=== PATIENT | female | born 1955 | race Caucasian/White ===

== ENCOUNTER 2017-08-13 01:56 | Inpatient (IN) | payer MEDICARE, MEDICAID ==
[~2017-08-13] VITALS: Ht 172.7 cm; Wt 150.5 kg
[2017-08-13] VITALS (24 sets, daily range): BP systolic 85–157; BP diastolic 46–82; Ht 172.7 cm; Wt 150.5 kg
--- NOTE | ~2017-08-13 | OP ---
PATIENT NAME: DHRUV MERCADO MEDICAL RECORD: [id number] :55 LOCATION:D[facility] D.2311 ADMISSION DATE:08/13/17 SURGEON: LAKHWINDER SEVILLA MD DATE OF OPERATION: 08/17/2017 DATE OF OPERATION: 08/17/2017 PREOPERATIVE DIAGNOSES: 1. Hypertension. 2. Vurph-lj-qeufjoj hypoxic and hypercapnic respiratory failure. 3. Community-acquired pneumonia. 4. Eebrr-ez-adnpusq systolic congestive heart failure. 5. Coronary artery disease. 6. Chronic lower extremity lymphedema POSTOPERATIVE DIAGNOSES: 1. Hypertension. 2. Zchuj-oh-lrqcosv hypoxic and hypercapnic respiratory failure. 3. Community-acquired pneumonia. 4. Xstbl-sk-xgziyzv systolic congestive heart failure. 5. Coronary artery disease. 6. Chronic lower extremity lymphedema. PROCEDURE: Right radial art line placement. SURGEON: Lakhwinder Sevilla MD REPORT OF PROCEDURE: The patient's right wrist was prepped and draped in sterile fashion. Half a cc of 1% lidocaine was infused into the subcutaneous tissues and Angiocath. A 20-Canadian was used to access the patient's right radial artery. We were able to advance this with ease and there was good pulsatile flow. This was sutured down with interrupted 3-0 silks times 2 and had a good reading on the initial arterial readings. This was then dressed with a Tegaderm. COMPLICATIONS: None. CONDITION: Critical. ANESTHESIA: Local. BLOOD LOSS: Minimal. Procedure done in the ICU at the bedside. TRANSINT:[id number] Voice Confirmation ID: [id number] DOCUMENT ID: [id number] OPERATIVE REPORT [id number] ROGELIODHRUVLAKHWINDER JON MD at 1409 CC: [id number] DICTATION DATE: 08/17/172139 METAL MOLDER: 08/18/17 0205 ADM IN [place] [id number] [place] [address]
--- NOTE | ~2017-08-13 | EC ---
PATIENT:DHRUV MERCADO DATE OF SERVICE: 08/13/17 SEX: F MEDICAL RECORD: [id number] DATE OF : 55 LOCATION:[facility] AGE OF PATIENT: 62 ADMISSION DATE: 08/13/17 REFERRING PHYSICIAN: INTERPRETING PHYSICIAN: YUSRA BRANHAM MD ECHOCARDIOGRAM REPORT ECHO CHARGES Date: CLINICAL DIAGNOSIS: ECHOCARDIOGRAPHIC MEASUREMENTS (adult normal given) AC root (d.<3.7cm) cm LV Septum d (<1.2 cm> cm Valve Excursion cm LV Septum (systole) cm Left Atria (s.<4.0cm> cm LVPW d(<1.2cm) cm RV (d.<2.3cm) cm LVPW (sytole) cm LV diastole(<5.6CM) cm MV E-F(>70mm/sec) cm LV systole cm LVOT Diameter cm MV exc.(>10mm) cm Est.ejection fraction (50-75%) % DOPPLER: LVIT cm/sec A cm/sec E cm/sec LA cm/sec RVSP mmHg LVOT cm/sec AOP1/2T m/s Asc. Ao cm/sec RVOT cm/sec RA cm/sec PA cm/sec AV Gradient Peak mmHg AV Mean mmHg AV Area cm MV Gradient Peak mmHg MV Mean mmHg MV Area cm COMMENTS: Emergency Room Physician Assistant: Pacs Administrator: PREMA# Pericardial Effusion DATE OF SERVICE: 08/13/2017 PROCEDURE: Echocardiogram. FINDINGS: 1. Left ventricular chamber size is within normal limits. Left ventricular systolic function is mildly reduced, overall ejection fraction estimated at 40%. There is mild global hypokinesis throughout all segments with no discrete wall motion abnormalities present. 2. Left atrium, right atrium, and right ventricular chamber sizes are within ECHOCARDIOGRAM REPORT [id number] DHRUV MERCADO normal limits. 3. Valvular structures: Aortic valve demonstrates calcific aortic sclerosis, but no significant aortic stenosis is present. The remaining valvular structures have normal structure and motion. 4. Doppler interrogation only reveals mild mitral regurgitation, moderate tricuspid regurgitation, no other valvular insufficiency or stenosis. Pulmonary systolic pressure is estimated at 39 mmHg. 5. No evidence of pericardial effusion or left ventricular thrombus. TRANSINT:[id number] Voice Confirmation ID: [id number] DOCUMENT ID: [id number] YUSRA BRANHAM MD at 1730 CC: [id number] DICTATION DATE: 08/13/17 1321 DIESEL ENGINE FITTER: 08/13/17 1337 ADM IN [facility] [address] [facility], [facility]
--- NOTE | ~2017-08-13 | CN ---
PATIENT NAME:DHRUV MERCADO MEDICAL RECORD: [id number] : 55 LOCATION:[facility].2311 ADMIT DATE: 08/13/17 ACCOUNT: [id number] CONSULTING PHYSICIAN: PAULA BARNES MD REFERRING PHYSICIAN: PRISCILLA MAN MD DATE OF CONSULTATION: 08/13/2017 CONSULT REQUESTING PHYSICIAN: Dr. Man. REASON FOR CONSULTATION: Pulmonary edema, wizss-ni-lsffrrc hypoxic respiratory failure. HISTORY OF PRESENT ILLNESS: Ms. Mercado is a 62-year-old female who is sick for the last few days. She is coughing, wheezing, and shortness of breath. She has orthopnea and PND. The patient was seen in the [facility] and found out pulmonary edema and pneumonia. The patient transferred to [facility]. She is now feeling a little bit better. Denies any chest pain. She has a chronic dependent edema which is oozing fluid. REVIEW OF SYSTEMS: As in history of present illness. PAST MEDICAL HISTORY: 1. Obstructive sleep apnea. 2. Chronic hypoxic respiratory failure. 3. Chronic obstructive pulmonary disease. 4. Congestive heart failure. 5. Coronary artery disease. PAST SURGICAL HISTORY: 1. Cholecystectomy. 2. Excision of melanoma from the left breast. 3. Femur surgery. 4. Left lymphadenectomy. ALLERGIES: SHE IS ALLERGIC TO LEVOFLOXACIN AND CODEINE. PERSONAL AND SOCIAL HISTORY: The patient is an ex-smoker. She is a nondrinker. FAMILY HISTORY: Significant for cardiovascular disease. PHYSICAL EXAMINATION: GENERAL: Now, the patient is lying comfortably. She is not in acute distress. VITAL SIGNS: The blood pressure 157/60, pulse is 21, respiration is 20, temperature is 99.1, SpO2 is 97% on 35% oxygen on BiPAP. HEENT: Conjunctivae are pink. Sclerae not icteric. NECK: Supple, no JVD. CHEST: The chest excursion is minimal on both sides, bilateral crackles, wheeze on forceful expiration. HEART: Rhythm regular, normal sound. Grade II/ systolic murmur. ABDOMEN: Soft, bowel sounds present. No hepatosplenomegaly. RECTAL: Deferred. EXTREMITIES: No cyanosis, no clubbing. There are 2+ pedal edema. SKIN: Warm, normal turgor. There is a stasis ulcer of the lower extremities. CENTRAL NERVOUS SYSTEM: The patient is awake and alert. There are no obvious cranial nerve abnormality. The gait was not tested. CONSULT REPORT [id number] DHRUV MERCADO LABORATORY DATA: CBC: WBC 29,000, hemoglobin 10.9, hematocrit 36.2, the platelet count 317. Chemistry: Sodium 134, potassium 4.2, BUN is 16, creatinine is 0.9, glucose 113. The proBNP is 13,776. IMPRESSION: 1. Zdhoe-sn-bhhwneq hypoxic respiratory failure. 2. Bilateral pneumonia, most likely community-acquired pneumonia. 3. Pulmonary edema. 4. Congestive heart failure with a chronic systolic dysfunction with EF of 40%, there is elevated proBNP. 5. Ex-smoker. 6. Coronary artery disease. 7. Chronic dependent edema. 8. Obstructive sleep apnea. RECOMMENDATIONS: 1. BiPAP and supplemental oxygen as required. 2. Albuterol ipratropium nebulizer. 3. Brovana-budesonide nebulizer. Start methylprednisolone IV. Start on doxycycline. Continue cefepime. 4. DVT prophylaxis. 5. Follow up labs and chest radiograph. 6. Strict glycemic control. Dr. Man, thank you for involving me in the care of Ms. Mercado. Followup labs and chest radiograph. TRANSINT:[id number] Voice Confirmation ID: [id number] DOCUMENT ID: [id number] PAULA BARNES MD at 1208 CC: [id number] DICTATION DATE: 08/13/17 1646 CLAMPER: 08/13/17 1759 DIS IN 08/23/17 [place] [id number] [place] [id number]
[~2017-08-13 01:56] MED LIST: ANORO ELLIPTA1 EACH INH; ASPIRIN EC81 M1 PO; GLUCOPHAGE500 MG PO; HYDROCODONE-APA1 TAB PO; IBUPROFEN800 MG PO; LISINOPRIL10 MG PO; LOPRESSOR25 MG PO; MIRABEGRON PO; PROZAC20 MG PO; VESICARE5 MG PO; ZOCOR80 MG PO; ZOFRAN8 MG PO
[2017-08-13 04:37] LABS: HEMATOCRIT 36.2 % (36.0-48.0); HEMOGLOBIN 10.9 g/dL (12-16); MCH 27.4 pg (26.0-34.0); MCHC 30.1 g/dL (31.0-37.0); MEAN PLATELET VOLUME 9.1 fL (7.4-10.4); PLATELET COUNT 317 10x3/uL (130-400); RBC 3.98 10x6/uL (4.00-5.40); RDW 17.1 % (11.5-14.5)
[2017-08-13 04:55] LABS: LYMPHOCYTES 1 % (15-50); MONOCYTES 4 % (2-11); NEUTROPHILS 86 % (40-80); PLATELET ESTIMATE NORMAL
[2017-08-13 05:13] LABS: ALBUMIN 1.6 g/dL (3.4-5.0); ANION GAP 9.7 mmol/L (8-16); BILIRUBIN - TOTAL 0.3 mg/dL (0.2-1.3); CALCIUM 8.3 mg/dL (8.5-10.1); CARBON DIOXIDE 34.5 mmol/L (21.0-32.0); CREATININE - SERUM 0.9 mg/dL (0.6-1.3); POTASSIUM - SERUM 4.2 mmol/L (3.5-5.1); PROTEIN - SERUM 5.5 g/dL (6.4-8.2)
[2017-08-14] VITALS (24 sets, daily range): BP systolic 84–128; BP diastolic 31–95
[2017-08-14 03:06] LABS: BASOPHILS 0 % (0-2); EOSINOPHILS 0 % (0-7); HEMATOCRIT 33.9 % (36.0-48.0); IMMATURE GRANULOCYTES 0.9 % (0-5); LYMPHOCYTES 1.7 % (15-50); MCH 26.7 pg (26.0-34.0); MCHC 29.5 g/dL (31.0-37.0); MCV 90.6 fL (80.0-100.0); MEAN PLATELET VOLUME 9.2 fL (7.4-10.4); MONOCYTES 4.4 % (2-11); PLATELET COUNT 351 10x3/uL (130-400); RBC 3.74 10x6/uL (4.00-5.40)
[2017-08-14 03:46] LABS: ALBUMIN 1.5 g/dL (3.4-5.0); ANION GAP 7.5 mmol/L (8-16); BILIRUBIN - TOTAL 0.2 mg/dL (0.2-1.3); CALCIUM 7.8 mg/dL (8.5-10.1); CARBON DIOXIDE 33.7 mmol/L (21.0-32.0); POTASSIUM - SERUM 4.2 mmol/L (3.5-5.1); PROTEIN - SERUM 5.1 g/dL (6.4-8.2)
[2017-08-14 03:49] LABS: CREATININE - SERUM 1.3 mg/dL (0.6-1.3)
[2017-08-14 03:56] LABS: C-REACTIVE PROTEIN 19.2 mg/dL (0.0-0.9)
[2017-08-15] VITALS (24 sets, daily range): BP systolic 78–132; BP diastolic 26–108
[2017-08-15 04:28] LABS: BASOPHILS 0 % (0-2); EOSINOPHILS 0 % (0-7); HEMATOCRIT 35.3 % (36.0-48.0); HEMOGLOBIN 10.6 g/dL (12-16); IMMATURE GRANULOCYTES 1.2 % (0-5); LYMPHOCYTES 1.8 % (15-50); MCV 90.1 fL (80.0-100.0); MEAN PLATELET VOLUME 9.1 fL (7.4-10.4); MONOCYTES 3.9 % (2-11); NEUTROPHILS 93.1 % (40-80); PLATELET COUNT 397 10x3/uL (130-400); RBC 3.92 10x6/uL (4.00-5.40); WBC 21.6 10x3/uL (4.8-10.8)
[2017-08-15 04:51] LABS: ALBUMIN 1.7 g/dL (3.4-5.0); ANION GAP 9.7 mmol/L (8-16); BILIRUBIN - TOTAL 0.3 mg/dL (0.2-1.3); CALCIUM 7.7 mg/dL (8.5-10.1); CARBON DIOXIDE 30.8 mmol/L (21.0-32.0); CREATININE - SERUM 1.6 mg/dL (0.6-1.3); MAGNESIUM - SERUM 1.6 mg/dL (1.8-2.4); PHOSPHOROUS 4.8 mg/dL (2.5-4.9); POTASSIUM - SERUM 4.5 mmol/L (3.5-5.1); PROTEIN - SERUM 5.5 g/dL (6.4-8.2)
[2017-08-15 13:35] LABS: BASOPHILS 0 % (0-2); EOSINOPHILS 0 % (0-7); HEMATOCRIT 30.3 % (36.0-48.0); HEMOGLOBIN 9.1 g/dL (12-16); IMMATURE GRANULOCYTES 1.3 % (0-5); LYMPHOCYTES 2.8 % (15-50); MCH 26.8 pg (26.0-34.0); MCV 89.1 fL (80.0-100.0); MONOCYTES 4.7 % (2-11); NEUTROPHILS 91.2 % (40-80); PLATELET COUNT 315 10x3/uL (130-400); WBC 20.3 10x3/uL (4.8-10.8)
[2017-08-16] VITALS (90 sets, daily range): BP systolic 74–128; BP diastolic 33–105
[2017-08-16 05:11] LABS: BASOPHILS 0 % (0-2); EOSINOPHILS 0 % (0-7); HEMATOCRIT 32.6 % (36.0-48.0); HEMOGLOBIN 9.7 g/dL (12-16); IMMATURE GRANULOCYTES 2.1 % (0-5); LYMPHOCYTES 5.2 % (15-50); MCH 26.9 pg (26.0-34.0); MCHC 29.8 g/dL (31.0-37.0); MCV 90.3 fL (80.0-100.0); MEAN PLATELET VOLUME 9.3 fL (7.4-10.4); MONOCYTES 5.1 % (2-11); NEUTROPHILS 87.6 % (40-80); PLATELET COUNT 491 10x3/uL (130-400); RBC 3.61 10x6/uL (4.00-5.40); RDW 17.1 % (11.5-14.5); WBC 29.4 10x3/uL (4.8-10.8)
[2017-08-16 05:27] LABS: INR 1.12 (0.85-1.17)
[2017-08-16 05:48] LABS: ALBUMIN 1.6 g/dL (3.4-5.0); ANION GAP 10.8 mmol/L (8-16); BILIRUBIN - TOTAL 0.3 mg/dL (0.2-1.3); C-REACTIVE PROTEIN 6.1 mg/dL (0.0-0.9); CALCIUM 7.8 mg/dL (8.5-10.1); CARBON DIOXIDE 30.5 mmol/L (21.0-32.0); CREATININE - SERUM 1.8 mg/dL (0.6-1.3); MAGNESIUM - SERUM 1.6 mg/dL (1.8-2.4); POTASSIUM - SERUM 4.3 mmol/L (3.5-5.1); PROTEIN - SERUM 5.7 g/dL (6.4-8.2)
[2017-08-16 23:33] LABS: CREATININE - URINE 7.3 mg/dL (30-125); PROTEIN - URINE 16.1 mg/dL (0.0-11.9)
[2017-08-16 23:35] LABS: APPEARANCE HAZY (CLEAR); BILIRUBIN NEGATIVE (NEGATIVE); COLOR YELLOW (YELLOW); GLUCOSE NEGATIVE (NEGATIVE); KETONE NEGATIVE (NEGATIVE); NITRITE NEGATIVE (NEGATIVE); PROTEIN NEGATIVE (NEGATIVE); UROBILINOGEN NORMAL (NORMAL)
[2017-08-16 23:36] LABS: BACTERIA FEW /hpf (NONE SEEN); CALCIUM OXALATE CRYSTALS OCC /hpf (NONE SEEN); EPITHELIAL CELLS 0-5 /hpf (0-5)
[2017-08-17] VITALS (92 sets, daily range): BP systolic 78–145; BP diastolic 21–122
[2017-08-17 05:02] LABS: BASOPHILS 0 % (0-2); EOSINOPHILS 0.1 % (0-7); HEMATOCRIT 29.5 % (36.0-48.0); HEMOGLOBIN 9.1 g/dL (12-16); IMMATURE GRANULOCYTES 2.4 % (0-5); LYMPHOCYTES 4.1 % (15-50); MCH 26.8 pg (26.0-34.0); MCHC 30.8 g/dL (31.0-37.0); MEAN PLATELET VOLUME 9.7 fL (7.4-10.4); MONOCYTES 3.4 % (2-11); RDW 16.8 % (11.5-14.5)
[2017-08-17 05:06] LABS: MCV 86.8 fL (80.0-100.0); PLATELET COUNT 284 10x3/uL (130-400); WBC 18.9 10x3/uL (4.8-10.8)
[2017-08-17 06:19] LABS: ANION GAP 14.2 mmol/L (8-16); BILIRUBIN - TOTAL 0.46 mg/dL (0.2-1.3); CALCIUM 7.5 mg/dL (8.5-10.1); CREATININE - SERUM 1.6 mg/dL (0.6-1.3); MAGNESIUM - SERUM 1.6 mg/dL (1.8-2.4); PHOSPHOROUS 4.3 mg/dL (2.5-4.9); POTASSIUM - SERUM 4.2 mmol/L (3.5-5.1); PROTEIN - SERUM 5.2 g/dL (6.4-8.2); VANCOMYCIN - TROUGH 9.1 ug/mL (10.0-20.0)
[2017-08-18] VITALS (94 sets, daily range): BP systolic 70–120; BP diastolic 25–432
[2017-08-18 04:39] LABS: BASOPHILS 0.1 % (0-2); EOSINOPHILS 0.2 % (0-7); HEMATOCRIT 24.4 % (36.0-48.0); IMMATURE GRANULOCYTES 2.6 % (0-5); LYMPHOCYTES 2.5 % (15-50); MCH 26.7 pg (26.0-34.0); MCHC 30.7 g/dL (31.0-37.0); MCV 86.8 fL (80.0-100.0); MEAN PLATELET VOLUME 9.1 fL (7.4-10.4); MONOCYTES 5.2 % (2-11); NEUTROPHILS 89.4 % (40-80); PLATELET COUNT 248 10x3/uL (130-400); RBC 2.81 10x6/uL (4.00-5.40); RDW 16.4 % (11.5-14.5); WBC 16.4 10x3/uL (4.8-10.8)
[2017-08-18 04:47] LABS: HEMOGLOBIN 7.5 g/dL (12-16)
[2017-08-18 05:08] LABS: BILIRUBIN - TOTAL 0.4 mg/dL (0.2-1.3); CALCIUM 7.7 mg/dL (8.5-10.1); CARBON DIOXIDE 26.6 mmol/L (21.0-32.0); PHOSPHOROUS 3.5 mg/dL (2.5-4.9); POTASSIUM - SERUM 3.6 mmol/L (3.5-5.1)
[2017-08-18 05:12] LABS: ALBUMIN 2.6 g/dL (3.4-5.0)
[2017-08-19] VITALS (93 sets, daily range): BP systolic 81–122; BP diastolic 25–70
[2017-08-19 05:09] LABS: BASOPHILS 0.1 % (0-2); EOSINOPHILS 0.2 % (0-7); HEMATOCRIT 27.6 % (36.0-48.0); HEMOGLOBIN 8.7 g/dL (12-16); LYMPHOCYTES 1.9 % (15-50); MCH 27.7 pg (26.0-34.0); MCHC 31.5 g/dL (31.0-37.0); MCV 87.9 fL (80.0-100.0); MEAN PLATELET VOLUME 9.5 fL (7.4-10.4); MONOCYTES 4.2 % (2-11); NEUTROPHILS 90.6 % (40-80); PLATELET COUNT 222 10x3/uL (130-400); RBC 3.14 10x6/uL (4.00-5.40); RDW 16.4 % (11.5-14.5); WBC 23.1 10x3/uL (4.8-10.8)
[2017-08-19 05:30] LABS: BILIRUBIN - TOTAL 0.7 mg/dL (0.2-1.3); CALCIUM 7.2 mg/dL (8.5-10.1); CARBON DIOXIDE 26.8 mmol/L (21.0-32.0); CREATININE - SERUM 1.9 mg/dL (0.6-1.3); MAGNESIUM - SERUM 1.7 mg/dL (1.8-2.4); PHOSPHOROUS 3.5 mg/dL (2.5-4.9); PROTEIN - SERUM 4.7 g/dL (6.4-8.2)
[2017-08-19 05:55] LABS: ANION GAP 8.2 mmol/L (8-16)
[2017-08-19 05:56] LABS: TROPONIN-I 0.434 ng/mL (0.000-0.060)
[2017-08-20] VITALS (92 sets, daily range): BP systolic 79–130; BP diastolic 31–66
[2017-08-20 04:05] LABS: BASOPHILS 0.1 % (0-2); EOSINOPHILS 0.3 % (0-7); HEMATOCRIT 26.4 % (36.0-48.0); HEMOGLOBIN 8.2 g/dL (12-16); IMMATURE GRANULOCYTES 4.3 % (0-5); LYMPHOCYTES 1.6 % (15-50); MCH 27.6 pg (26.0-34.0); MCHC 31.1 g/dL (31.0-37.0); MCV 88.9 fL (80.0-100.0); MEAN PLATELET VOLUME 9.9 fL (7.4-10.4); MONOCYTES 4.9 % (2-11); NEUTROPHILS 88.8 % (40-80); PLATELET COUNT 229 10x3/uL (130-400); RBC 2.97 10x6/uL (4.00-5.40); RDW 16.3 % (11.5-14.5)
[2017-08-20 04:22] LABS: ALBUMIN 1.8 g/dL (3.4-5.0); BILIRUBIN - TOTAL 0.34 mg/dL (0.2-1.3); CALCIUM 7.9 mg/dL (8.5-10.1); CREATININE - SERUM 2.1 mg/dL (0.6-1.3); MAGNESIUM - SERUM 2.5 mg/dL (1.8-2.4); PHOSPHOROUS 3.4 mg/dL (2.5-4.9); POTASSIUM - SERUM 3.9 mmol/L (3.5-5.1); PROTEIN - SERUM 4.6 g/dL (6.4-8.2)
[2017-08-20 04:24] LABS: ANION GAP 10.9 mmol/L (8-16)
[2017-08-21] VITALS (86 sets, daily range): BP systolic 83–128; BP diastolic 32–81
[2017-08-21 04:55] LABS: BASOPHILS 0.1 % (0-2); EOSINOPHILS 0.6 % (0-7); HEMATOCRIT 23.5 % (36.0-48.0); HEMOGLOBIN 7.6 g/dL (12-16); IMMATURE GRANULOCYTES 5.2 % (0-5); LYMPHOCYTES 3.9 % (15-50); MCH 28.3 pg (26.0-34.0); MCHC 32.3 g/dL (31.0-37.0); MCV 87.4 fL (80.0-100.0); MEAN PLATELET VOLUME 10.3 fL (7.4-10.4); MONOCYTES 2.5 % (2-11); NEUTROPHILS 87.7 % (40-80); PLATELET COUNT 175 10x3/uL (130-400); RBC 2.69 10x6/uL (4.00-5.40); RDW 16.3 % (11.5-14.5); WBC 29.3 10x3/uL (4.8-10.8)
[2017-08-21 05:18] LABS: ANION GAP 13.4 mmol/L (8-16); CALCIUM 7.7 mg/dL (8.5-10.1); CARBON DIOXIDE 23.8 mmol/L (21.0-32.0); CREATININE - SERUM 2.5 mg/dL (0.6-1.3); MAGNESIUM - SERUM 2.6 mg/dL (1.8-2.4); PHOSPHOROUS 3.6 mg/dL (2.5-4.9); POTASSIUM - SERUM 4.2 mmol/L (3.5-5.1); VANCOMYCIN - RANDOM 28.7 ug/mL (10.0-20.0)
[2017-08-21 14:13] LABS: ACID FAST SMEAR Negative (()); AFB SPECIMEN PROCESSING Concentration (())
[2017-08-21 14:30] LABS: APPEARANCE TURBID (CLEAR); BILIRUBIN NEGATIVE (NEGATIVE); COLOR RED (YELLOW); GLUCOSE NEGATIVE (NEGATIVE); KETONE NEGATIVE (NEGATIVE); NITRITE NEGATIVE (NEGATIVE); PROTEIN 2+ mg/dL (NEGATIVE); SPECIFIC GRAVITY 1.015 (1.005-1.020); UROBILINOGEN NORMAL (NORMAL)
[2017-08-21 14:31] LABS: WHITE CELLS - URINE 0-5 /hpf (0-5)
[2017-08-21 14:32] LABS: BACTERIA FEW /hpf (NONE SEEN); EPITHELIAL CELLS 0-5 /hpf (0-5); RED CELLS - URINE >50 /hpf (0-5)
[2017-08-22] VITALS (93 sets, daily range): BP systolic 76–132; BP diastolic 21–88
[2017-08-22 04:43] LABS: INR 1.12 (0.85-1.17)
[2017-08-22 04:44] LABS: APTT 31.4 SECONDS (22.8-39.4)
[2017-08-22 04:52] LABS: BASOPHILS 0.1 % (0-2); EOSINOPHILS 0.1 % (0-7); HEMATOCRIT 21.8 % (36.0-48.0); HEMOGLOBIN 7.2 g/dL (12-16); IMMATURE GRANULOCYTES 5.3 % (0-5); LYMPHOCYTES 1.9 % (15-50); MCH 28.3 pg (26.0-34.0); MCV 85.8 fL (80.0-100.0); MEAN PLATELET VOLUME 10.3 fL (7.4-10.4); MONOCYTES 1.1 % (2-11); NEUTROPHILS 91.5 % (40-80); PLATELET COUNT 172 10x3/uL (130-400); RBC 2.54 10x6/uL (4.00-5.40); RDW 16.3 % (11.5-14.5); WBC 37.8 10x3/uL (4.8-10.8)
[2017-08-22 04:59] LABS: ALBUMIN 1.9 g/dL (3.4-5.0); ANION GAP 10.9 mmol/L (8-16); BILIRUBIN - TOTAL 0.4 mg/dL (0.2-1.3); CALCIUM 7.8 mg/dL (8.5-10.1); CARBON DIOXIDE 25.6 mmol/L (21.0-32.0); CREATININE - SERUM 2.6 mg/dL (0.6-1.3); MAGNESIUM - SERUM 2.7 mg/dL (1.8-2.4); POTASSIUM - SERUM 4.5 mmol/L (3.5-5.1); PROTEIN - SERUM 4.4 g/dL (6.4-8.2); VANCOMYCIN - RANDOM 25.5 ug/mL (10.0-20.0)
[2017-08-23] VITALS (67 sets, daily range): BP systolic 63–121; BP diastolic 28–117
[2017-08-23 04:34] LABS: RBC 2.24 10x6/uL (4.00-5.40); WBC 44.1 10x3/uL (4.8-10.8)
[2017-08-23 04:35] LABS: BASOPHILS 0.1 % (0-2); EOSINOPHILS 0 % (0-7); HEMATOCRIT 18.5 % (36.0-48.0); HEMOGLOBIN 6.4 g/dL (12-16); IMMATURE GRANULOCYTES 6.1 % (0-5); LYMPHOCYTES 2.4 % (15-50); MCH 28.6 pg (26.0-34.0); MCHC 34.6 g/dL (31.0-37.0); MCV 82.6 fL (80.0-100.0); MEAN PLATELET VOLUME 10.8 fL (7.4-10.4); MONOCYTES 1.7 % (2-11); NEUTROPHILS 89.7 % (40-80); PLATELET COUNT 171 10x3/uL (130-400); RDW 17.3 % (11.5-14.5)
[2017-08-23 04:47] LABS: ALBUMIN 1.6 g/dL (3.4-5.0); ANION GAP 13.6 mmol/L (8-16); BILIRUBIN - TOTAL 0.38 mg/dL (0.2-1.3); CALCIUM 7.4 mg/dL (8.5-10.1); CARBON DIOXIDE 23.8 mmol/L (21.0-32.0); CREATININE - SERUM 2.5 mg/dL (0.6-1.3); MAGNESIUM - SERUM 2.8 mg/dL (1.8-2.4); PHOSPHOROUS 4.5 mg/dL (2.5-4.9); POTASSIUM - SERUM 4.4 mmol/L (3.5-5.1); PROTEIN - SERUM 3.6 g/dL (6.4-8.2)
[2017-08-23 15:24] LABS: HEMATOCRIT 20.8 % (36.0-48.0)
[2017-08-23 15:48] LABS: HEMOGLOBIN 7.2 g/dL (12-16)
[2017-08-25 09:20] LABS: ANTI-GLOMERULAR BASMENT MEMBRN 2 units (0-20)
[2017-08-25 10:22] LABS: ANA REFLEX - DIRECT Negative (Negative)
[2017-08-25 11:20] LABS: FUNGUS STAIN Final report (())
[2017-08-25 15:27] LABS: ANCA - ANTIMYELOPEROXIDASE <9.0 U/mL (0.0-9.0); ANCA - ANTIPROTEINASE 3 <3.5 U/mL (0.0-3.5); ANCA - ATYPICAL <1:20 titer (Neg:<1:20); ANCA - CYTOPLASMIC <1:20 titer (Neg:<1:20); ANCA - PERINUCLEAR <1:20 titer (Neg:<1:20)
[2017-09-02 15:24] LABS: FUNGUS CULTURE RESULT 1 Candida glabrata (())
[2017-09-17 14:23] LABS: FUNGUS MYCOLOGY CULTURE Final report (())
== END 2017-08-23 23:08 | DRG 853 ==
LOC: D.ICU 01:56
PROVIDERS: Family Medicine; Internal Medicine Nephrology; Internal Medicine Pulmonary Disease
PROC: 5A09357 Assistance with Respiratory Ventilation, Less than 24 Consecutive Hours, Continuous Positive Airway Pressure (ICD-10-PCS; 2017-08-13)
PROC: 05HY33Z Insertion of Infusion Device into Upper Vein, Percutaneous Approach (ICD-10-PCS; principal; 2017-08-16)
PROC: 4A133B1 Monitoring of Arterial Pressure, Peripheral, Percutaneous Approach (ICD-10-PCS; 2017-08-17)
PROC: 4A133J1 Monitoring of Arterial Pulse, Peripheral, Percutaneous Approach (ICD-10-PCS; 2017-08-17)
PROC: 5A1945Z Respiratory Ventilation, 24-96 Consecutive Hours (ICD-10-PCS; 2017-08-20)
PROC: 0BH17EZ Insertion of Endotracheal Airway into Trachea, Via Natural or Artificial Opening (ICD-10-PCS; 2017-08-20)
PROC: 0B9F8ZX Drainage of Right Lower Lung Lobe, Via Natural or Artificial Opening Endoscopic, Diagnostic (ICD-10-PCS; 2017-08-20)
DX: A41.9 Sepsis, unspecified organism (principal); J18.9 Pneumonia, unspecified organism; I50.23 Acute on chronic systolic (congestive) heart failure; R53.2 Functional quadriplegia; R65.21 Severe sepsis with septic shock; J96.22 Acute and chronic respiratory failure with hypercapnia; J96.21 Acute and chronic respiratory failure with hypoxia; G92 Toxic encephalopathy; J81.1 Chronic pulmonary edema; J44.1 Chronic obstructive pulmonary disease with (acute) exacerbation; N17.9 Acute kidney failure, unspecified; E87.1 Hypo-osmolality and hyponatremia; I11.0 Hypertensive heart disease with heart failure; E66.01 Morbid (severe) obesity due to excess calories; G47.33 Obstructive sleep apnea (adult) (pediatric); E11.9 Type 2 diabetes mellitus without complications; D64.9 Anemia, unspecified; E88.09 Other disorders of plasma-protein metabolism, not elsewhere classified; I89.0 Lymphedema, not elsewhere classified; I25.10 Atherosclerotic heart disease of native coronary artery without angina pectoris; G47.00 Insomnia, unspecified; Z87.891 Personal history of nicotine dependence; R41.0 Disorientation, unspecified; E78.5 Hyperlipidemia, unspecified